=== PATIENT | female | born 1995 | race Caucasian/White ===

== ENCOUNTER 2018-09-29 14:53 | Inpatient (IN) | payer MEDICAID ==
[~2018-09-29] VITALS: Ht 157.5 cm; Wt 86.3 kg
[2018-10-02] MEDS ORDERED: OXYTOCIN 30U/ 0.9% NaCL 500ML 500 ML IV ONE (06:34)
[2018-10-02 06:42] VITALS: BP 124/75
[2018-10-02] MEDS ORDERED: PREN-3 PO (06:48)
[2018-10-02] MEDS: LACTATED RINGERS 1,000 ML IV SCH ×3 (06:57→22:34)
[2018-10-02] MEDS ORDERED: ONDANSETRON 2MG/ML, 2ML IVPush PRN (07:00)
[2018-10-02] MEDS ORDERED: FENTANYL PF 100 MCG/2ML IV PRN (07:00)
[2018-10-02] MEDS ORDERED: TERBUTALINE 1 MG/ML, 1ML IVPush PRN ×2 (07:00)
[2018-10-02] MEDS ORDERED: CALCIUM CARBONATE 500 MG TAB.CHEW PO PRN (07:00)
[2018-10-02] MEDS ORDERED: FENTANYL PF 100 MCG/2ML IVPush PRN (07:00)
[2018-10-02] MEDS ORDERED: OXYTOCIN 30U/ 0.9% NaCL 500ML 500 ML IV PRN (07:20)
[2018-10-02 07:22] LABS: BASOPHILS # (AUTO) 0.04 x10^3/uL (0-0.1); BASOPHILS % (AUTO) 0 % (0-1); EOSINOPHILS # (AUTO) 0.35 x10^3/uL (0-0.4); EOSINOPHILS % (AUTO) 3 % (1-7); LYMPHOCYTES # (AUTO) 2.02 x10^3/uL (1-3.4); LYMPHOCYTES % (AUTO) 17 % (22-44); MD NO; MEAN CORPUSCULAR HEMOGLOBIN 28.5 pg (27.0-34.8); MEAN CORPUSCULAR VOLUME 86.4 fL (80-100); MEAN PLATELET VOLUME 8.6 fL (7.4-10.4); MONOCYTES # (AUTO) 0.76 x10^3/uL (0.2-0.8); MONOCYTES % (AUTO) 6 % (2-9); NEUTROPHILS # (AUTO) 9.02 x10^3/uL (1.8-6.8); NEUTROPHILS % (AUTO) 74 % (42-75); PLATELET COUNT 230 x10^3/uL (130-400); RED BLOOD COUNT 4.42 x10^6/uL (3.82-5.3); RED CELL DISTRIBUTION WIDTH 18.8 % (9.6-15.2)
[2018-10-02] MEDS ORDERED: NEWBORN KIT ONE (07:23)
[2018-10-02] MEDS ORDERED: OXYTOCIN 30U/ 0.9% NaCL 500ML 500 ML ONE (07:23)
[2018-10-02] MEDS ORDERED: LACTATED RINGERS 1,000 ML IV SCH (19:51)
[2018-10-02] MEDS ORDERED: FENTANYL/BUPIV./NS/PF 250 ML EPIDCONT SCH ×2 (19:51→19:56)
[2018-10-02] MEDS ORDERED: NALOXONE 0.4 MG/ML, 1ML IVPush PRN (20:00)
[2018-10-02] MEDS ORDERED: EPHEDRINE 50 MG/ML, 1ML IVPush PRN (20:00)
[2018-10-02] MEDS ORDERED: LACTATED RINGERS 1,000 ML IVBOLUS PRN (20:00)
[2018-10-02] MEDS ORDERED: BUPIVACAINE 0.25% ONE (20:24)
[2018-10-02] MEDS ORDERED: FENTANYL PF 500 MCG, BUPIVACAINE/PF 0.5%, 30ML 62.5 ML in SODIUM CHLORIDE 0.9% 177.5 ML EPIDCONT SCH (20:30)
[2018-10-03] MEDS ORDERED: D5%-LACTATED RINGERS 1,000 ML IV SCH (00:40)
[2018-10-03] MEDS ORDERED: MISOPROSTOL 200 MCG TABLET PR PRN (08:00)
[2018-10-03] MEDS: PRENATAL VIT/IRON/FA 1 EACH TABLET PO SCH (09:00)
[2018-10-03] MEDS: LACTATED RINGERS 1,000 ML IV SCH (09:39)
[2018-10-03] MEDS ORDERED: OXYTOCIN 30U/ 0.9% NaCL 500ML 500 ML ONE (13:20)
[2018-10-03] MEDS: OXYTOCIN 30U/ 0.9% NaCL 500ML 500 ML IV SCH ×2 (13:22→17:36)
[2018-10-03] MEDS ORDERED: IBUPROFEN 800 MG TABLET ONE (14:11)
[2018-10-03] MEDS ORDERED: IBUPROFEN 200 MG TABLET PO PRN (14:30)
[2018-10-03 15:20] VITALS: BP 132/80
[2018-10-03] MEDS ORDERED: IBUPROFEN 800 MG TABLET PO PRN (15:30)
[2018-10-03 19:25] VITALS: BP 126/76
[2018-10-03] MEDS: DOCUSATE 100 MG CAPSULE PO PRN (23:03)
[2018-10-03] MEDS: IBUPROFEN 600 MG TABLET PO PRN (23:03)
[2018-10-03 23:27] LABS: MEAN CORPUSCULAR HEMOGLOBIN 29.1 pg (27.0-34.8); MEAN CORPUSCULAR HGB CONC 33.8 g/dL (32.4-35.8); MEAN CORPUSCULAR VOLUME 86.2 fL (80-100); MEAN PLATELET VOLUME 8.5 fL (7.4-10.4); PLATELET COUNT 219 x10^3/uL (130-400); RED CELL DISTRIBUTION WIDTH 19.3 % (9.6-15.2)
[2018-10-04] LABS: BASOPHILS # (AUTO) 0.08 x10^3/uL (0-0.1); BASOPHILS % (AUTO) 0 % (0-1); EOSINOPHILS # (AUTO) 0.13 x10^3/uL (0-0.4); EOSINOPHILS % (AUTO) 1 % (1-7); LYMPHOCYTES # (AUTO) 1.97 x10^3/uL (1-3.4); LYMPHOCYTES % (AUTO) 9 % (22-44); MD SCAN; MONOCYTES # (AUTO) 1.46 x10^3/uL (0.2-0.8); MONOCYTES % (AUTO) 7 % (2-9); NEUTROPHILS # (AUTO) 18.96 x10^3/uL (1.8-6.8); NEUTROPHILS % (AUTO) 84 % (42-75)
[2018-10-04 00:30] VITALS: BP 121/76
[2018-10-04] MEDS: OXYcodone/APAP 5/325MG TABLET PO PRN ×4 (02:44→19:28)
[2018-10-04] MEDS: OXYTOCIN 30U/ 0.9% NaCL 500ML 500 ML IV SCH ×3 (03:36→23:36)
[2018-10-04 04:00] VITALS: BP 113/82
[2018-10-04 08:40] VITALS: BP 107/67
[2018-10-04] MEDS: PRENATAL VIT/IRON/FA 1 EACH TABLET PO SCH (08:42)
[2018-10-04] MEDS: IBUPROFEN 600 MG TABLET PO PRN ×2 (08:42→16:22)
[2018-10-04] MEDS: DOCUSATE 100 MG CAPSULE PO PRN ×2 (08:42→19:28)
[2018-10-04] MEDS ORDERED: DIPH,PERTUSS(ACELL),TET VAC/PF NC IM-VACC ONE ×2 (19:22→19:30)
[2018-10-04 19:40] VITALS: BP 117/75
[2018-10-05] MEDS: IBUPROFEN 600 MG TABLET PO PRN ×2 (00:33→08:17)
[2018-10-05] MEDS: OXYcodone/APAP 5/325MG TABLET PO PRN ×3 (00:33→12:27)
[2018-10-05 08:00] VITALS: BP 109/68
[2018-10-05] MEDS: PRENATAL VIT/IRON/FA 1 EACH TABLET PO SCH (08:17)
[2018-10-05] MEDS: DOCUSATE 100 MG CAPSULE PO PRN (08:17)
[2018-10-05] MEDS: OXYTOCIN 30U/ 0.9% NaCL 500ML 500 ML IV SCH (09:36)
[2018-10-05] MEDS ORDERED: IBUP200T49 PO (11:23)
[2018-10-05] MEDS ORDERED: HYDR-3240 PO (11:23)
== END 2018-10-05 13:55 | disposition home or self-care (01) | DRG 807 ==
LOC: LDIP 10-02 06:32 → 2NW 10-03 15:15
PROVIDERS: ADMIT Student in an Organized Health Care Education/Training Program; ATTEND Student in an Organized Health Care Education/Training Program
PROC: 10D07Z6 Extraction of Products of Conception, Vacuum, Via Natural or Artificial Opening (ICD-10-PCS; principal; 2018-10-03)
PROC: 10907ZC Drainage of Amniotic Fluid, Therapeutic from Products of Conception, Via Natural or Artificial Opening (ICD-10-PCS; 2018-10-03)
PROC: 10H07YZ Insertion of Other Device into Products of Conception, Via Natural or Artificial Opening (ICD-10-PCS; 2018-10-03)
PROC: 0W8NXZZ Division of Female Perineum, External Approach (ICD-10-PCS; 2018-10-03)
PROC: 3E0R3BZ Introduction of Anesthetic Agent into Spinal Canal, Percutaneous Approach (ICD-10-PCS; 2018-10-03)
PROC: 00HU33Z Insertion of Infusion Device into Spinal Canal, Percutaneous Approach (ICD-10-PCS; 2018-10-03)
DX: O77.0 Labor and delivery complicated by meconium in amniotic fluid (principal); Z37.0 Single live birth; O76 Abnormality in fetal heart rate and rhythm complicating labor and delivery; O99.344 Other mental disorders complicating childbirth; G43.909 Migraine, unspecified, not intractable, without status migrainosus; Z3A.40 40 weeks gestation of pregnancy; Z83.3 Family history of diabetes mellitus
CPT/HCPCS: 36415; J7121; S0020; 85025; 86850; 86900; 90715; G0378; J3010; J2590; J7050; J7120

== ENCOUNTER 2020-02-26 19:23 | Emergency (ER) | payer SELFPAY ==
[~2020-02-26] VITALS: Ht 157.5 cm; Wt 85.0 kg
[~2020-02-26 19:23] MED LIST: HYDR-3240 PO; IBUP200T49 PO; PREN-3 PO
[2020-02-26] MEDS ORDERED: IBUPROFEN 800 MG TABLET PO STA (20:17)
[2020-02-26 21:37] VITALS: BP 127/82
== END 2020-02-26 21:39 | disposition home or self-care (01) ==
LOC: ED 20:36
DX: M94.0 Chondrocostal junction syndrome [Tietze] (principal); R07.89 Other chest pain; R94.31 Abnormal electrocardiogram [ECG] [EKG]
CPT/HCPCS: 71046; 93005; 99283

== ENCOUNTER 2020-09-28 12:12 | Outpatient (CLI) | payer MEDICAID ==
[~2020-09-28] VITALS: Ht 157.5 cm; Wt 84.1 kg
[~2020-09-28 12:12] MED LIST changes: +HYDR-2214 PO; -HYDR-3240 PO
== END 2020-09-28 12:47 | disposition home or self-care (01) ==
LOC: LDOP 12:12
PROVIDERS: ATTEND Student in an Organized Health Care Education/Training Program
DX: O99.512 Diseases of the respiratory system complicating pregnancy, second trimester (principal); R06.02 Shortness of breath; Z3A.26 26 weeks gestation of pregnancy
CPT/HCPCS: 59025; 99211; G0463

== ENCOUNTER 2021-01-05 05:21 | Inpatient (IN) | payer MEDICAID ==
[~2021-01-05] VITALS: Ht 157.5 cm; Wt 95.9 kg
[2021-01-05] MEDS ORDERED: OXYTOCIN 30U/ 0.9% NaCL 500ML 500 ML IV ONE (07:30)
[2021-01-05] MEDS ORDERED: OXYTOCIN 30U/ 0.9% NaCL 500ML 500 ML IV PRN (07:30)
[2021-01-05] MEDS ORDERED: TERBUTALINE 1 MG/ML, 1ML SQ PRN (07:30)
[2021-01-05] MEDS ORDERED: TERBUTALINE 1 MG/ML, 1ML IVPush PRN (07:30)
[2021-01-05] MEDS ORDERED: ONDANSETRON 2MG/ML, 2ML IVPush PRN (07:30)
[2021-01-05] MEDS ORDERED: D5%-LACTATED RINGERS 1,000 ML IV SCH (07:30)
[2021-01-05] MEDS ORDERED: FENTANYL PF 100 MCG/2ML IVPush PRN (07:30)
[2021-01-05] MEDS: LACTATED RINGERS 1,000 ML IV SCH ×2 (07:56→13:30)
[2021-01-05 08:08] LABS: BASOPHILS % (AUTO) 0 % (0-1); EOSINOPHILS % (AUTO) 6 % (1-7); LYMPHOCYTES % (AUTO) 22 % (22-44); MEAN CORPUSCULAR HEMOGLOBIN 29.3 pg (27.0-34.8); MEAN PLATELET VOLUME 8.5 fL (7.4-10.4); MONOCYTES % (AUTO) 8 % (2-9); NEUTROPHILS % (AUTO) 64 % (42-75); PLATELET COUNT 180 x10^3/uL (130-400); RED BLOOD COUNT 4.55 x10^6/uL (3.82-5.3); RED CELL DISTRIBUTION WIDTH 15.2 % (9.6-15.2)
[2021-01-05] MEDS ORDERED: NEWBORN KIT ONE (08:54)
[2021-01-05] MEDS ORDERED: BUPIVACAINE 0.25% ONE (13:05)
[2021-01-05] MEDS ORDERED: NALOXONE 0.4 MG/ML, 1ML IVPush PRN (13:30)
[2021-01-05] MEDS ORDERED: FENTANYL/BUPIV./NS/PF 250 ML EPIDCONT SCH (13:30)
[2021-01-05] MEDS ORDERED: EPHEDRINE 50 MG/ML, 1ML IVPush PRN (13:30)
[2021-01-05] MEDS ORDERED: LACTATED RINGERS 1,000 ML IV SCH (13:30)
[2021-01-05] MEDS ORDERED: LACTATED RINGERS 1,000 ML IVBOLUS PRN (13:30)
[2021-01-05 18:47] LABS: ALANINE AMINOTRANSFERASE 10 U/L (12-78); ALBUMIN 2.3 g/dL (3.4-5.0); ANION GAP 10 mmol/L (5-15); CALCIUM 8.8 mg/dL (8.5-10.1); CHLORIDE 105 mmol/L (98-107); CREATININE 0.56 mg/dL (0.55-1.02)
[2021-01-05 18:49] LABS: ALKALINE PHOSPHATASE 197 U/L (45-117); BILIRUBIN,TOTAL 1.1 mg/dL (0.2-1.0); TOTAL PROTEIN 6.3 g/dL (6.4-8.2)
[2021-01-06] MEDS ORDERED: ONDANSETRON 2MG/ML, 2ML IVPush PRN (01:00)
[2021-01-06] MEDS ORDERED: ALBUTEROL SULFATE 2.5 MG/3 ML NPPB PRN (01:00)
[2021-01-06] MEDS ORDERED: LABETALOL 5MG/ML, 20ML IV PRN (01:00)
[2021-01-06] MEDS ORDERED: FENTANYL PF 100 MCG/2ML IV PRN (01:00)
[2021-01-06] MEDS ORDERED: MIDAZOLAM 1 MG/ML, 2ML IV PRN (01:00)
[2021-01-06] MEDS ORDERED: EPHEDRINE 50 MG/ML, 1ML IVPush PRN (01:00)
[2021-01-06] MEDS ORDERED: METOPROLOL 1 MG/ML, 5ML IV PRN (01:00)
[2021-01-06] MEDS ORDERED: HYDROmorphone 2 MG/ML, 1ML IVPush PRN (01:00)
[2021-01-06] MEDS ORDERED: MEPERIDINE/PF 25MG/0.5ML IVPush PRN (01:00)
[2021-01-06] MEDS ORDERED: HYDROcodone/APAP 7.5-325MG/15ML UDC PO PRN (01:00)
[2021-01-06] MEDS ORDERED: hydrALAzine 20 MG/ML, 1ML IV PRN (01:00)
[2021-01-06] MEDS ORDERED: PROMETHAZINE 25 MG/ML, 1ML IV PRN (01:00)
[2021-01-06] MEDS ORDERED: OXYcodone 5 MG/5 ML ORAL.SOL UDC PO PRN (01:00)
[2021-01-06] MEDS ORDERED: SODIUM CITRATE/CITRIC ACID 15 ML UDC ONE (03:56)
[2021-01-06] MEDS ORDERED: METOCLOPRAMIDE 5 MG/ML, 2ML ONE (03:56)
[2021-01-06] MEDS: LACTATED RINGERS 1,000 ML IV SCH ×5 (04:30→20:30)
[2021-01-06] MEDS ORDERED: METOCLOPRAMIDE 5 MG/ML, 2ML IV ONE (04:30)
[2021-01-06] MEDS ORDERED: SODIUM CITRATE/CITRIC ACID 30 ML UDC PO ONE (04:30)
[2021-01-06] MEDS ORDERED: SIMETHICONE 80 MG CHEW TAB PO PRN (04:30)
[2021-01-06] MEDS ORDERED: MISOPROSTOL 200 MCG TABLET PO PRN (04:30)
[2021-01-06] MEDS ORDERED: OXYcodone/APAP 5/325MG TABLET PO PRN (04:30)
[2021-01-06] MEDS ORDERED: CARBOPROST TROMETHAMINE 250 MCG/ML, 1ML IM PRN (04:30)
[2021-01-06] MEDS ORDERED: ONDANSETRON 2MG/ML, 2ML IV PRN (04:30)
[2021-01-06] MEDS ORDERED: MORPHINE SULFATE 4 MG/ML, 1ML IVPush PRN (04:30)
[2021-01-06] MEDS ORDERED: ACETAMINOPHEN 325 MG TABLET PO PRN (04:30)
[2021-01-06] MEDS ORDERED: TRANEXAMIC ACID 1,000 MG in SODIUM CHLORIDE 0.9% 100 ML IVPB ONE (04:30)
[2021-01-06] MEDS ORDERED: AZITHROMYCIN 500 MG in SODIUM CHLORIDE 0.9% 250 ML IV ONE (04:30)
[2021-01-06] MEDS: OXYTOCIN 30U/ 0.9% NaCL 500ML 500 ML IV SCH ×2 (06:46→14:30)
[2021-01-06] MEDS ORDERED: METHYLERGONOVINE 0.2 MG/ML IM ONE (07:39)
[2021-01-06 08:10] VITALS: BP 135/78
[2021-01-06] MEDS: PRENATAL VIT/IRON/FA 1 EACH TABLET PO SCH (09:00)
[2021-01-06] MEDS: OXYcodone/APAP 5/325MG TABLET PO PRN ×2 (10:55→15:36)
[2021-01-06] MEDS: KETOROLAC 30 MG/1 ML IV SCH ×4 (11:40→23:41)
[2021-01-06 12:00] VITALS: BP 111/58
[2021-01-06 15:39] LABS: BASOPHILS % (AUTO) 0 % (0-1); EOSINOPHILS % (AUTO) 0 % (1-7); LYMPHOCYTES % (AUTO) 6 % (22-44); MEAN CORPUSCULAR HEMOGLOBIN 29.5 pg (27.0-34.8); MEAN CORPUSCULAR HGB CONC 32.9 g/dL (32.4-35.8); MEAN PLATELET VOLUME 8.8 fL (7.4-10.4); MONOCYTES % (AUTO) 6 % (2-9); NEUTROPHILS % (AUTO) 88 % (42-75); PLATELET COUNT 161 x10^3/uL (130-400); RED BLOOD COUNT 4.21 x10^6/uL (3.82-5.3); RED CELL DISTRIBUTION WIDTH 15.3 % (9.6-15.2)
[2021-01-06 16:00] VITALS: BP 102/55
[2021-01-06 20:00] VITALS: BP 107/68
[2021-01-07] VITALS: BP 109/67
[2021-01-07] MEDS: OXYTOCIN 30U/ 0.9% NaCL 500ML 500 ML IV SCH (00:30)
[2021-01-07] MEDS: LACTATED RINGERS 1,000 ML IV SCH ×2 (00:30→04:30)
[2021-01-07] MEDS: OXYcodone/APAP 5/325MG TABLET PO PRN ×2 (01:18→05:56)
[2021-01-07 04:30] VITALS: BP 101/60
[2021-01-07] MEDS: KETOROLAC 30 MG/1 ML IV SCH ×2 (04:30→04:39)
[2021-01-07] MEDS: IBUPROFEN 600 MG TABLET PO PRN ×3 (04:44→19:47)
[2021-01-07 08:20] VITALS: BP 105/68
[2021-01-07] MEDS: DOCUSATE 100 MG CAPSULE PO PRN ×2 (08:55→19:47)
[2021-01-07] MEDS: ACETAMINOPHEN 325 MG TABLET PO PRN (08:56)
[2021-01-07] MEDS: OXYcodone IR 5MG TABLET PO PRN ×3 (08:56→19:49)
[2021-01-07] MEDS: PRENATAL VIT/IRON/FA 1 EACH TABLET PO SCH (08:57)
[2021-01-07 20:00] VITALS: BP 113/71
[2021-01-08] MEDS: ACETAMINOPHEN 325 MG TABLET PO PRN ×2 (00:06→10:35)
[2021-01-08] MEDS: OXYcodone IR 5MG TABLET PO PRN ×5 (00:06→20:33)
[2021-01-08] MEDS: IBUPROFEN 600 MG TABLET PO PRN ×4 (02:13→22:17)
[2021-01-08 07:50] VITALS: BP 99/64
[2021-01-08] MEDS: DOCUSATE 100 MG CAPSULE PO PRN (08:43)
[2021-01-08] MEDS: PRENATAL VIT/IRON/FA 1 EACH TABLET PO SCH (08:44)
[2021-01-08] MEDS ORDERED: OXYC5TAB98 PO (13:51)
[2021-01-08] MEDS ORDERED: IBUP-1222 PO (13:51)
[2021-01-08 20:00] VITALS: BP 106/65
[2021-01-08 21:27] LABS: BASOPHILS % (AUTO) 1 % (0-1); EOSINOPHILS % (AUTO) 4 % (1-7); LYMPHOCYTES % (AUTO) 20 % (22-44); MEAN CORPUSCULAR HEMOGLOBIN 29.8 pg (27.0-34.8); MEAN CORPUSCULAR HGB CONC 33.3 g/dL (32.4-35.8); MONOCYTES % (AUTO) 6 % (2-9); NEUTROPHILS % (AUTO) 69 % (42-75); PLATELET COUNT 199 x10^3/uL (130-400); RED BLOOD COUNT 3.58 x10^6/uL (3.82-5.3); RED CELL DISTRIBUTION WIDTH 15.1 % (9.6-15.2)
[2021-01-09] MEDS: OXYcodone IR 5MG TABLET PO PRN ×3 (00:26→09:17)
[2021-01-09] MEDS: IBUPROFEN 600 MG TABLET PO PRN ×2 (04:31→10:41)
[2021-01-09 07:45] VITALS: BP 111/73
[2021-01-09] MEDS: PRENATAL VIT/IRON/FA 1 EACH TABLET PO SCH (09:15)
[2021-01-09] MEDS: DOCUSATE 100 MG CAPSULE PO PRN (09:16)
== END 2021-01-09 13:38 | disposition home or self-care (01) | DRG 788 ==
LOC: LDIP 06:50 → 2NW 01-06 07:42
PROVIDERS: ADMIT Student in an Organized Health Care Education/Training Program; ATTEND Student in an Organized Health Care Education/Training Program
PROC: 10907ZC Drainage of Amniotic Fluid, Therapeutic from Products of Conception, Via Natural or Artificial Opening (ICD-10-PCS; 2021-01-05)
PROC: 3E0R3BZ Introduction of Anesthetic Agent into Spinal Canal, Percutaneous Approach (ICD-10-PCS; 2021-01-05)
PROC: 00HU33Z Insertion of Infusion Device into Spinal Canal, Percutaneous Approach (ICD-10-PCS; 2021-01-05)
PROC: 3E033VJ Introduction of Other Hormone into Peripheral Vein, Percutaneous Approach (ICD-10-PCS; 2021-01-05)
PROC: 10D00Z1 Extraction of Products of Conception, Low, Open Approach (ICD-10-PCS; principal; 2021-01-06)
DX: O64.0XX0 Obstructed labor due to incomplete rotation of fetal head, not applicable or unspecified (principal); Z20.822 Contact with and (suspected) exposure to COVID-19; O32.4XX0 Maternal care for high head at term, not applicable or unspecified; Z37.0 Single live birth; Z3A.41 41 weeks gestation of pregnancy; Z82.49 Family history of ischemic heart disease and other diseases of the circulatory system; Z83.3 Family history of diabetes mellitus
CPT/HCPCS: 36415; J7121; 80053; 84550; 85025; 86592; 86850; 86900; 87635; G0378; J0456; J1885; J3010; J2210; J2590; J2765; J7050; J7120